=== PATIENT | female | born 1960 | race Caucasian/White ===

== ENCOUNTER 2017-11-22 18:46 | Emergency (ER) | payer OTHER ==
[~2017-11-22] VITALS: Ht 165.1 cm; Wt 66.7 kg
[2017-11-22] MEDS ORDERED: TAPAZOLE5 MG (19:03)
[2017-11-22] MEDS ORDERED: MIRAPEX0.5 MG (19:04)
[2017-11-22] MEDS ORDERED: NORCO 5-325 TA1 EACH (19:05)
[2017-11-22 19:20] LABS: ABSOLUTE BASOPHILS 0.1 thou/uL (0.0-0.2); ABSOLUTE EOSINOPHILS 0.1 thou/uL (0.0-0.7); ABSOLUTE MONOCYTES 0.5 thou/uL (0.0-1.2); ABSOLUTE NEUTROPHILS 4.2 thou/uL (1.6-8.1); BASOPHILS 0.9 %; EOSINOPHILS 1.6 %; HEMATOCRIT 37.2 % (37.0-47.0); HEMOGLOBIN 12.6 gm/dL (12.0-15.0); LYMPHOCYTES 37.8 %; MCH 29.4 pg (26.0-34.0); MCHC 33.8 g/dL (28.0-37.0); MONOCYTES 6.5 %; NUCLEATED RBCS 0 /100WBC; PLATELET COUNT* 301 thou/uL (150-400); POLYS 53.2 %; RBC 4.27 mil/uL (4.20-5.00); RDW-CV 14.4 % (10.5-14.5); WBC 7.9 thou/uL (4.0-11.0)
[2017-11-22] MEDS ORDERED: ASPIRIN325 PO (19:26)
[2017-11-22 19:28] LABS: CALCIUM 8.6 mg/dL (8.5-10.1); CREATININE 0.9 mg/dL (0.6-1.3); POTASSIUM 3.9 mmol/L (3.5-5.1)
[2017-11-22 19:29] LABS: APTT 27.9 Seconds (25.0-31.3); INR 1.1; PROTIME 10.7 Seconds (9.20-11.50)
[2017-11-22 19:32] LABS: ALBUMIN 3.1 g/dL (3.4-5.0); TOTAL BILIRUBIN 0.2 mg/dL (<0.1-1.0); TOTAL PROTEIN 6.6 g/dL (6.4-8.2)
[2017-11-22 21:26] VITALS: BP 103/49
== END 2017-11-22 21:28 | disposition home or self-care (01) ==
LOC: M.ERS 18:46
PROVIDERS: Nurse Practitioner Family
DX: M79.605 Pain in left leg (principal); E05.00 Thyrotoxicosis with diffuse goiter without thyrotoxic crisis or storm; G25.81 Restless legs syndrome

== ENCOUNTER 2019-03-18 18:54 | Emergency (ER) | payer OTHER ==
[~2019-03-18] VITALS: Ht 165.1 cm; Wt 74.8 kg
[~2019-03-18 18:54] MED LIST: ASPIRIN325 PO; MIRAPEX0.5 MG; NORCO 5-325 TA1 EACH; TAPAZOLE5 MG
[2019-03-18] MEDS ORDERED: VENTOLIN HFA INH8 GM INH (19:08)
[2019-03-18] MEDS ORDERED: DOXYCYCLINE 10100 MG PO (19:24)
[2019-03-18 19:45] VITALS: BP 106/63
== END 2019-03-18 19:45 | disposition home or self-care (01) ==
LOC: M.ERS 18:54
DX: L03.115 Cellulitis of right lower limb (principal); Z90.710 Acquired absence of both cervix and uterus